=== PATIENT | female | born 1995 | race Caucasian/White ===

== ENCOUNTER 2023-11-01 23:42 | Emergency (ER) | payer MEDICAID, OTHER ==
[~2023-11-01] VITALS: Ht 154.9 cm; Wt 50.0 kg
[2023-11-01 23:54] VITALS: TEMP 98.6; O2SAT 98
[2023-11-02 00:45] VITALS: BP 136/94; PULSE 107; RESP 16
[2023-11-02] MEDS ORDERED: LIDOCAINE HCL/PF 1% 10 MG/ML 5ML VIAL INFIL ONE (00:45)
[2023-11-02] MEDS ORDERED: IBUPROFEN 600MG TABLET PO ONE (00:45)
[2023-11-02] MEDS ORDERED: BACITRACIN ZINC OINT UDPKT TOP ONE (00:45)
[2023-11-02] MEDS ORDERED: TETANUS, DIPHTHERIA, PERTUSSIS VAC/PF 0.5ML (>10YR OLD) IM ONE ×2 (00:45→03:15)
[2023-11-02] MEDS ORDERED: IBUP-2028 MT (02:15)
[2023-11-02] MEDS ORDERED: BO1 TP (02:15)
== END 2023-11-02 03:59 | disposition home or self-care (01) ==
LOC: ER 23:42
DX: S61.412A Laceration without foreign body of left hand, initial encounter (principal); I10 Essential (primary) hypertension; W26.0XXA Contact with knife, initial encounter; Y93.89 Activity, other specified; Y92.89 Other specified places as the place of occurrence of the external cause; Y99.8 Other external cause status
CPT/HCPCS: 99283; 12001; 73130; 90715; 90471; J3490